=== PATIENT | female | born 1965 | race Caucasian/White ===

== ENCOUNTER 2017-02-08 19:08 | Inpatient (IN) | payer MEDICAID ==
[~2017-02-08] VITALS: Ht 175.3 cm; Wt 81.6 kg
[2017-02-08 19:12] VITALS: BP 122/81
[2017-02-08 19:42] LABS: BASOPHILS % (AUTO) 0.8 % (0.0-2.0); EOSINOPHILS % (AUTO) 0.1 % (0.0-3.0); LYMPHOCYTES % (AUTO) 24.5 % (20.0-45.0); MEAN CORPUSCULAR VOLUME 97 FL (80-99); MEAN PLATELET VOLUME 6.8 FL (6.5-10.1); MONOCYTES % (AUTO) 9.5 % (1.0-10.0); NEUTROPHILS % (AUTO) 65.1 % (45.0-75.0); PLATELET COUNT 270 K/UL (150-450); RED BLOOD COUNT 4.62 M/UL (4.20-5.40); RED CELL DISTRIBUTION WIDTH 12.2 % (11.6-14.8); WHITE BLOOD COUNT 5.7 K/UL (4.8-10.8)
[2017-02-08 19:50] LABS: TROPONIN I < 0.30 ng/mL (<=0.30)
[2017-02-08 19:51] LABS: ALBUMIN/GLOBULIN RATIO 1.3 (1.0-2.7); CALCIUM 10.2 mg/dL (8.6-10.2); CREATININE 1.1 mg/dL (0.5-0.9); GLOMERULAR FILTRATION RATE 52.4 mL/min (>60); POTASSIUM 3.4 mEQ/L (3.4-4.9); TOTAL PROTEIN 9.1 g/dL (6.6-8.7)
[2017-02-08 19:59] LABS: APPEARANCE,URINE CLEAR; KETONES,URINE 1+ (NEGATIVE); LEUKOCYTE ESTERASE ,URINE 1+ (NEGATIVE); NITRITE,URINE POSITIVE (NEGATIVE); PH,URINE 5 (4.5-8.0); PROTEIN,URINE 3+ (NEGATIVE); UROBILINOGEN,URINE 4 MG/DL (0.0-1.0)
[2017-02-08 20:00] VITALS: BP 128/74
[2017-02-08 20:06] LABS: BACTERIA,URINE FEW /HPF; SQUAMOUS EPITHELIAL CELL,UR FEW /LPF (NONE/OCC); WBC,URINE 0-2 /HPF (0 - 2)
[2017-02-08 20:07] LABS: AMORPHOUS SEDIMENT,UR FEW /LPF; ICTOTEST NEGATIVE
[2017-02-08] MEDS ORDERED: Lidocaine 1% MPF 10mg/ml 5ml INJ ONE (20:15)
[2017-02-08 20:18] LABS: CKMB 3.2 ng/mL (< 3.8)
[2017-02-08] MEDS ORDERED: Bacitracin Oint UD TOPIC ONE (20:24)
[2017-02-08 21:00] VITALS: BP 117/59
--- NOTE | 2017-02-08 21:01 | Emergency Room Report ---
History of Present Illness General Chief Complaint: Multiple Trauma/Fall Source: Patient Present Illness HPI The patient has a two-year history of alcohol abuse. She states she had been clean for 15 years after abusing alcohol previously. She states she relapsed 2 years ago and is progressively been drinking or every day. She states she drinks about 4 or hard liquor drinks per day. She states that she went to take care of her animals and she fell and hit her head on the floor. She states that she also has ankle pain. She states she's never injured herself while drinking. She states that she would like to detox again and come completely off alcohol. She states that she has severe withdrawal and would like to be an inpatient to do this. She did drink today. She has no other complaints. Allergies: Coded Allergies: OPIOIDS - MORPHINE ANALOGUES (Unverified Adverse Reaction, Mild, "Makes patient feel sick", 02/08/17) Uncoded Allergies: OPIATES (Allergy, Unknown, 02/08/17) "MAKE PT FEEL SICK" Patient History Past Medical History: see triage record, other - ETOH abuse Social History: Reports: alcohol use, Denies: drug use, smoking Reviewed Nursing Documentation: PMH: Agreed, PSxH: Agreed Nursing Documentation-PMH Past Medical History: No Stated History Review of Systems All Other Systems: negative except mentioned in HPI Physical Exam Vital Signs Date Time Temp Pulse Resp B/P Pulse Ox O2 Delivery O2 Flow Rate FiO2 02/08/17 19:00 97.9 102 14 122/81 97 Room Air Sp02 EP Interpretation: reviewed, normal General Appearance: no apparent distress, alert, GCS 15, non-toxic, other - + odor of ETOH Head: normocephalic, other - 2.5cm Forehead laceration at the scalp line. Gaping, full thickness. Eyes: bilateral eye PERRL, bilateral eye normal inspection ENT: hearing grossly normal, normal pharynx, no angioedema, normal voice Neck: full range of motion, supple/symm/no masses Respiratory: chest non-tender, lungs clear, normal breath sounds, speaking full sentences Cardiovascular #1: regular rate, rhythm, no edema Gastrointestinal: normal bowel sounds, non tender, soft, non-distended, no guarding, no rebound Rectal: deferred Musculoskeletal: back normal, other - L. ankle w/ swelling and ecchymosis Neurologic: alert, oriented x3, responsive, motor strength/tone normal, sensory intact, speech normal Psychiatric: judgement/insight normal, memory normal, mood/affect normal, no suicidal/homicidal ideation Skin: well hydrated, other - See head exam Medical Decision Making Diagnostic Impression: Primary Impression: EtOH dependence Additional Impressions: Facial laceration Ankle fracture, bimalleolar, closed ETOH detoxification ER Course Patient presents status post fall and alcohol intoxication. She has a facial laceration that was repaired. See my procedure note. She also has a bimalleolar ankle fracture. The patient was placed in a splint. The patient requests alcohol detoxification as an inpatient. The patient is admitted for further detox. She also has a bimalleolar fracture and may need surgical repair. The patient is admitted for further evaluation and treatment. Labs Test 02/08/17 19:20 White Blood Count 5.7 K/UL (4.8-10.8) Red Blood Count 4.62 M/UL (4.20-5.40) Hemoglobin 16.2 G/DL (12.0-16.0) Hematocrit 44.9 % (37.0-47.0) Mean Corpuscular Volume 97 FL (80-99) Mean Corpuscular Hemoglobin 35.0 PG (27.0-31.0) Mean Corpuscular Hemoglobin Concent 36.0 G/DL (32.0-36.0) Red Cell Distribution Width 12.2 % (11.6-14.8) Platelet Count 270 K/UL (150-450) Mean Platelet Volume 6.8 FL (6.5-10.1) Neutrophils (%) (Auto) 65.1 % (45.0-75.0) Lymphocytes (%) (Auto) 24.5 % (20.0-45.0) Monocytes (%) (Auto) 9.5 % (1.0-10.0) Eosinophils (%) (Auto) 0.1 % (0.0-3.0) Basophils (%) (Auto) 0.8 % (0.0-2.0) Prothrombin Time 10.0 SEC (9.30-11.50) Prothromb Time International Ratio 1.0 (0.9-1.1) Activated Partial Thromboplast Time 27 SEC (23-33) Urine Color Brown Urine Appearance Clear Urine pH 5 (4.5-8.0) Urine Specific [place] 1.030 (1.005-1.035) Urine Protein 3+ (NEGATIVE) Urine Glucose (UA) Negative (NEGATIVE) Urine Ketones 1+ (NEGATIVE) Urine Occult Blood 2+ (NEGATIVE) Urine Nitrite Positive (NEGATIVE) Urine Bilirubin 1+ (NEGATIVE) Urine Ictotest Negative Urine Urobilinogen 4 MG/DL (0.0-1.0) Urine Leukocyte Esterase 1+ (NEGATIVE) Urine RBC 2-4 /HPF (0 - 2) Urine WBC 0-2 /HPF (0 - 2) Urine Squamous Epithelial Cells Few /LPF (NONE/OCC) Urine Amorphous Sediment Few /LPF (NONE) Urine Bacteria Few /HPF (NONE) Sodium Level 138 mEQ/L (135-145) Potassium Level 3.4 mEQ/L (3.4-4.9) Chloride Level 94 mEQ/L (98-107) Carbon Dioxide Level 22 mEQ/L (20-30) Anion Gap 22 (5-15) Blood Urea Nitrogen 16 mg/dL (7-23) Creatinine 1.1 mg/dL (0.5-0.9) Estimat Glomerular Filtration Rate 52.4 mL/min (>60) Glucose Level 119 mg/dL (74-106) Calcium Level 10.2 mg/dL (8.6-10.2) Total Bilirubin 0.5 mg/dL (0.0-1.2) Aspartate Amino Transf (AST/SGOT) 127 U/L (5-40) Alanine Aminotransferase (ALT/SGPT) 92 U/L (3-33) Alkaline Phosphatase 127 U/L (35-104) Total Creatine Kinase 248 U/L (26-140) Creatine Kinase MB 3.2 ng/mL (< 3.8) Creatine Kinase MB Relative Index 1.2 Troponin I < 0.30 ng/mL (<=0.30) Total Protein 9.1 g/dL (6.6-8.7) Albumin 5.3 g/dL (3.5-5.2) Globulin 3.8 g/dL Albumin/Globulin Ratio 1.3 (1.0-2.7) Serum Alcohol 287 mg/dL EKG Diagnostic Results Rate: normal Rhythm: NSR ST Segments: no acute changes Rhythm Strip Diag. Results EP Interpretation: yes Rate: 90's Rhythm: NSR, no PVC's, no ectopy Chest X-Ray Diagnostic Results Chest X-Ray Diagnostic Results : Chest X-Ray Ordered: Yes # of Views/Limited/Complete: 1 View Indication: Other EP Interpretation: Yes Interpretation: no consolidation, no effusion, no pneumothorax, no acute cardiopulmonary disease Impression: No acute disease CT/MRI/US Diagnostic Results CT/MRI/US Diagnostic Results : Imaging Test Ordered: CT head, CT facial bones Impression No acute bleed. No fracture. See official report. Last Vital Signs Date Time Temp Pulse Resp B/P Pulse Ox O2 Delivery O2 Flow Rate FiO2 02/08/17 20:00 89 16 128/74 98 Room Air 02/08/17 19:12 97.9 Disposition: ADMITTED INPATIENT Condition: Stable Referrals: NOT CHOSEN IPA/,REFERRING (PCP) BRITANY REGALADO D.O. Feb 08, 2017 21:01
[2017-02-08 22:00] VITALS: BP 124/81
[2017-02-08] MEDS ORDERED: Zolpidem 5mg tab ORAL PRN (22:30)
[2017-02-08] MEDS ORDERED: LORazepam Inj 2mg/ml 1ml IV PRN (22:30)
[2017-02-08] MEDS ORDERED: Mylanta II UD 30ml ORAL PRN (22:30)
[2017-02-08] MEDS ORDERED: Miralax 17gm pkt ORAL PRN (22:30)
[2017-02-08] MEDS ORDERED: chlordiazePOXIDE 25mg Cap ORAL PRN (22:30)
[2017-02-08 23:00] VITALS: BP 110/66
[2017-02-09] VITALS: BP 120/92
[2017-02-09] MEDS: Morphine Sulfate 2mg/ml Inj IVP PRN ×3 (01:00→11:44)
[2017-02-09 04:00] VITALS: BP 119/69
[2017-02-09 06:33] LABS: BASOPHILS % (AUTO) 0.5 % (0.0-2.0); EOSINOPHILS % (AUTO) 0.1 % (0.0-3.0); LYMPHOCYTES % (AUTO) 12.3 % (20.0-45.0); MEAN CORPUSCULAR HGB CONC 34.1 G/DL (32.0-36.0); MEAN CORPUSCULAR VOLUME 100 FL (80-99); MONOCYTES % (AUTO) 11.3 % (1.0-10.0); NEUTROPHILS % (AUTO) 75.8 % (45.0-75.0); PLATELET COUNT 221 K/UL (150-450); RED BLOOD COUNT 3.79 M/UL (4.20-5.40); RED CELL DISTRIBUTION WIDTH 12.2 % (11.6-14.8); WHITE BLOOD COUNT 6.5 K/UL (4.8-10.8)
[2017-02-09 07:27] LABS: ALANINE AMINOTRANSFERASE 64 U/L (3-33); ALBUMIN/GLOBULIN RATIO 1.1 (1.0-2.7); ANION GAP 21 (5-15); ASPARTATE AMINO TRANSFERASE 88 U/L (5-40); CALCIUM 9.2 mg/dL (8.6-10.2); CARBON DIOXIDE 21 mEQ/L (20-30); CHLORIDE 95 mEQ/L (98-107); CREATININE 0.7 mg/dL (0.5-0.9); GLOMERULAR FILTRATION RATE > 60 mL/min (>60); HEMOLYSIS 3; POTASSIUM 3.9 mEQ/L (3.4-4.9); SODIUM 137 mEQ/L (135-145); TOTAL PROTEIN 7.8 g/dL (6.6-8.7)
[2017-02-09 08:00] VITALS: BP 130/77
[2017-02-09] MEDS ORDERED: Thiamine HCl 100 MG in D5W 110 ML IVPB SCH (09:00)
[2017-02-09] MEDS ORDERED: Folic Acid 1 MG, Magnesium Sulfate 2,000 MG, Multivitamin - 12 Injection 10 ML in NS w/... IV SCH (09:00)
[2017-02-09] MEDS ORDERED: Heparin 5000 units/ml inj SUBQ SCH (09:00)
--- NOTE | 2017-02-09 09:02 | Diagnostic Imaging Report ---
Indication: Head trauma and headache Technique: Contiguous 5 mm thick transaxial imaging of the head obtained in a Siemens Sensation [address] scanner. Soft tissue and bone windows generated. Total Dose length Product (DLP): Refer CT maxillofacial mGycm CT Dose Index Volume (CTDIvol): Refer to CT maxillofacial mGy Comparison: none Findings: There is mild prominence of the ventricles, basal cisterns, and cerebral sulci consistent with atrophy. Mild, nonspecific, white matter hypoattenuation is noted throughout the brain consistent with chronic small vessel disease. There is no midline shift, edema, acute hemorrhage, mass effect, or abnormal extra-axial fluid collections. Bones and extra osseous soft tissues are unremarkable. Impression: No acute intracranial bleed, mass effect or edema. Mild atrophy of the brain. Nonspecific white matter hypoattenuation probably due to chronic small vessel disease. The CT scanner at [facility] is accredited by the [employer] and the scans are performed using dose optimization techniques as appropriate to a performed exam including Automatic Exposure control.
--- NOTE | 2017-02-09 09:21 | Diagnostic Imaging Report ---
Indication: Chest pain and chest trauma Comparison: None A single view chest radiograph was obtained. Findings: Cardiomediastinal appearance is within normal limits for age. Pulmonary vascularity is appropriate. The diaphragmatic contour is smooth and costophrenic angles are sharp. No pleural effusions are identified. The bones are unremarkable. Impression: No acute findings
--- NOTE | 2017-02-09 09:21 | Diagnostic Imaging Report ---
Indication: Left ankle pain and trauma Comparison: None Findings: 3 views of the left ankle obtained. There is an acute to subacute fracture involving the lateral malleolus with overlying soft tissue swelling. No other fractures are appreciated. Impression: Acute fracture of the lateral malleolus
--- NOTE | 2017-02-09 10:27 | History and Physical ---
History of Present Illness General Date patient seen: Feb 09, 2017 Reason for Hospitalization: Multiple Trauma/Fall Present Illness HPI 51 year old female with hx of alcohol abuse, who has been progressively drinking or every day. She states that she went to take care of her animals and she fell and hit her head on the floor. She states that she also has ankle pain. she was diagnosed to have malleolus fracture, received a splint from ER physician and transferred to [facility] because of her high level of ETOH. Allergies: Coded Allergies: OPIOIDS - MORPHINE ANALOGUES (Unverified Adverse Reaction, Mild, "Makes patient feel sick", 02/08/17) Uncoded Allergies: OPIATES (Allergy, Unknown, 02/08/17) "MAKE PT FEEL SICK" Patient History Healthcare decision maker Resuscitation status Full Code Advanced Directive on File No Past Medical/Surgical History Past Medical/Surgical History: (1) EtOH dependence Review of Systems All Other Systems: negative except mentioned in HPI Physical Exam General Appearance: WD/WN Lines, tubes and drains: peripheral HEENT: normocephalic, atraumatic Neck: non-tender, normal alignment Respiratory/Chest: chest wall non-tender, normal breath sounds Cardiovascular/Chest: normal peripheral pulses, normal rate Abdomen: normal bowel sounds Genitourinary/Rectal: normal genital exam Extremities: normal range of motion Last 24 Hour Vital Signs Date Time Temp Pulse Resp B/P Pulse Ox O2 Delivery O2 Flow Rate FiO2 02/09/17 08:00 81 02/09/17 08:00 97.5 81 19 130/77 97 Room Air 02/09/17 06:54 97.0 02/09/17 04:00 97.0 85 18 119/69 97 Room Air 02/09/17 04:00 86 02/09/17 00:00 97.3 88 20 120/92 96 Room Air 02/09/17 00:00 90 02/08/17 23:20 97.9 88 21 110/66 100 Room Air 02/08/17 23:00 88 21 110/66 100 Room Air 02/08/17 22:00 86 23 124/81 96 Room Air 02/08/17 21:00 84 18 117/59 98 Room Air 02/08/17 20:00 89 16 128/74 98 Room Air 02/08/17 19:12 97.9 102 14 122/81 97 Room Air 02/08/17 19:00 97.9 102 14 122/81 97 Room Air Intake and Output 02/08/17 02/09/17 19:00 07:00 Intake Total 1500 ml Balance 1500 ml Intake Oral 500 ml IV Total 1000 ml Laboratory Tests Test 02/08/17 19:20 02/09/17 04:45 White Blood Count 5.7 K/UL (4.8-10.8) 6.5 K/UL (4.8-10.8) Red Blood Count 4.62 M/UL (4.20-5.40) 3.79 M/UL (4.20-5.40) L Hemoglobin 16.2 G/DL (12.0-16.0) H 12.9 G/DL (12.0-16.0) Hematocrit 44.9 % (37.0-47.0) 37.8 % (37.0-47.0) Mean Corpuscular Volume 97 FL (80-99) 100 FL (80-99) H Mean Corpuscular Hemoglobin 35.0 PG (27.0-31.0) H 34.0 PG (27.0-31.0) H Mean Corpuscular Hemoglobin Concent 36.0 G/DL (32.0-36.0) 34.1 G/DL (32.0-36.0) Red Cell Distribution Width 12.2 % (11.6-14.8) 12.2 % (11.6-14.8) Platelet Count 270 K/UL (150-450) 221 K/UL (150-450) Mean Platelet Volume 6.8 FL (6.5-10.1) 7.0 FL (6.5-10.1) Neutrophils (%) (Auto) 65.1 % (45.0-75.0) 75.8 % (45.0-75.0) H Lymphocytes (%) (Auto) 24.5 % (20.0-45.0) 12.3 % (20.0-45.0) L Monocytes (%) (Auto) 9.5 % (1.0-10.0) 11.3 % (1.0-10.0) H Eosinophils (%) (Auto) 0.1 % (0.0-3.0) 0.1 % (0.0-3.0) Basophils (%) (Auto) 0.8 % (0.0-2.0) 0.5 % (0.0-2.0) Prothrombin Time 10.0 SEC (9.30-11.50) Prothromb Time International Ratio 1.0 (0.9-1.1) Activated Partial Thromboplast Time 27 SEC (23-33) Urine Color Brown Urine Appearance Clear Urine pH 5 (4.5-8.0) Urine Specific [place] 1.030 (1.005-1.035) Urine Protein 3+ (NEGATIVE) H Urine Glucose (UA) Negative (NEGATIVE) Urine Ketones 1+ (NEGATIVE) H Urine Occult Blood 2+ (NEGATIVE) H Urine Nitrite Positive (NEGATIVE) H Urine Bilirubin 1+ (NEGATIVE) H Urine Ictotest Negative Urine Urobilinogen 4 MG/DL (0.0-1.0) H Urine Leukocyte Esterase 1+ (NEGATIVE) H Urine RBC 2-4 /HPF (0 - 2) H Urine WBC 0-2 /HPF (0 - 2) Urine Squamous Epithelial Cells Few /LPF (NONE/OCC) Urine Amorphous Sediment Few /LPF (NONE) H Urine Bacteria Few /HPF (NONE) Sodium Level 138 mEQ/L (135-145) 137 mEQ/L (135-145) Potassium Level 3.4 mEQ/L (3.4-4.9) 3.9 mEQ/L (3.4-4.9) Chloride Level 94 mEQ/L (98-107) L 95 mEQ/L (98-107) L Carbon Dioxide Level 22 mEQ/L (20-30) 21 mEQ/L (20-30) Anion Gap 22 (5-15) H 21 (5-15) H Blood Urea Nitrogen 16 mg/dL (7-23) 15 mg/dL (7-23) Creatinine 1.1 mg/dL (0.5-0.9) H 0.7 mg/dL (0.5-0.9) Estimat Glomerular Filtration Rate 52.4 mL/min (>60) > 60 mL/min (>60) Glucose Level 119 mg/dL (74-106) H 87 mg/dL (74-106) Calcium Level 10.2 mg/dL (8.6-10.2) 9.2 mg/dL (8.6-10.2) Total Bilirubin 0.5 mg/dL (0.0-1.2) 0.7 mg/dL (0.0-1.2) Aspartate Amino Transf (AST/SGOT) 127 U/L (5-40) H 88 U/L (5-40) H Alanine Aminotransferase (ALT/SGPT) 92 U/L (3-33) H 64 U/L (3-33) H Alkaline Phosphatase 127 U/L (35-104) H 115 U/L (35-104) H Total Creatine Kinase 248 U/L (26-140) H Creatine Kinase MB 3.2 ng/mL (< 3.8) Creatine Kinase MB Relative Index 1.2 Troponin I < 0.30 ng/mL (<=0.30) Total Protein 9.1 g/dL (6.6-8.7) H 7.8 g/dL (6.6-8.7) Albumin 5.3 g/dL (3.5-5.2) H 4.2 g/dL (3.5-5.2) Globulin 3.8 g/dL 3.6 g/dL Albumin/Globulin Ratio 1.3 (1.0-2.7) 1.1 (1.0-2.7) Serum Alcohol 287 mg/dL Height (Feet): 5 Height (Inches): 9.00 Weight (Pounds): 180 Medications Current Medications Medications (Trade) Dose Ordered Sig/Tsering Route PRN Reason Start Time Stop Time Status Last Admin Dose Admin Acetaminophen (Tylenol) 650 mg Q4H PRN ORAL fever 02/08/17 22:30 03/10/17 22:29 Al Hydroxide/Mg Hydroxide (Mylanta II) 30 ml Q6H PRN ORAL dyspepsia 02/08/17 22:30 03/10/17 22:29 Chlordiazepoxide 25 mg 25 mg Q6H PRN ORAL Agitation 02/08/17 22:30 02/15/17 22:29 Dextrose STAT PRN IV Hypoglycemia 02/08/17 22:30 03/10/17 22:29 Folic Acid/ Magnesium Sulfate/ Multivitamins/ Sodium Chloride (Folvite/ Magnesium Sulfate/ M.v.i.-12/NS w/ KCl 20mEq) 1,014.2 ml @ 124.876 mls/hr DAILY IV 02/09/17 09:00 03/11/17 08:59 02/09/17 09:39 Heparin Sodium (Porcine) (Heparin 5000 units/ml) 5,000 units EVERY 12 HOURS SUBQ 02/09/17 09:00 03/11/17 08:59 02/09/17 09:35 Lorazepam (Ativan 2mg/ml 1ml) 2 mg Q1H PRN IV seizures 02/08/17 22:30 02/15/17 22:29 Morphine Sulfate (Morphine Sulfate) 4 mg Q4H PRN IVP For Pain 02/08/17 22:30 02/15/17 22:29 02/09/17 06:24 Ondansetron HCl (Zofran) 4 mg Q6H PRN IVP Nausea & Vomiting 02/08/17 22:30 03/10/17 22:29 02/09/17 07:02 Polyethylene Glycol (Miralax) 17 gm HSPRN PRN ORAL Constipation 02/08/17 22:30 03/10/17 22:29 Thiamine HCl/ Dextrose (Vitamin B1/D5W) 111 ml @ 111 mls/hr DAILY IVPB 02/09/17 09:00 03/11/17 08:59 02/09/17 09:39 Zolpidem Tartrate (Ambien) 5 mg HSPRN PRN ORAL Insomnia 02/08/17 22:30 03/10/17 22:29 02/09/17 00:29 Assessment/Plan Problem List: (1) Acute encephalopathy ICD Codes: G93.40 - Encephalopathy, unspecified SNOMED: 1664307 (2) Alcohol intoxication ICD Codes: F10.929 - Alcohol use, unspecified with intoxication, unspecified SNOMED: 35151272 (3) EtOH dependence ICD Codes: F10.20 - Alcohol dependence, uncomplicated SNOMED: 74430645, 744061582 (4) Ankle fracture, bimalleolar, closed ICD Codes: S82.843A - Displaced bimalleolar fracture of unspecified lower leg, initial encounter for closed fracture SNOMED: 62298306, 193293128 Assessment/Plan IV fluids check electrolytes. social service consult for detox referral. JEAN LABOY Feb 09, 2017 10:27
[2017-02-09 12:00] VITALS: BP 132/82
--- NOTE | 2017-02-09 13:31 | Diagnostic Imaging Report ---
Indication: Facial trauma and pain Technique: Continuous helical transaxial imaging of the maxillofacial structures obtained without intravenous contrast administration. Coronal 2-D reformats were also obtained. Study obtained in a Siemens sensation [address] Total Dose length Product (DLP): [address] Dose Index Volume (CTDIvol): 0.15, 70.38, 28.19 mGy Comparison: None Findings: There is no evidence of an acute fracture. There is mucosal thickening demonstrated within the right sphenoid sinus. Orbits appear normal bilaterally. There is no proptosis or retrobulbar hemorrhage. There is considerable motion artifact which limits evaluation of the mouth and mandible region. Fracture is not excludable. Impression: No acute fracture identified. Sinusitis Motion artifact prohibiting adequate evaluation of the mandible The CT scanner at [facility] is accredited by the [employer] and the scans are performed using dose optimization techniques as appropriate to a performed exam including Automatic Exposure control.
[2017-02-09 16:09] VITALS: BP 138/91
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
--- NOTE | 2017-02-11 13:23 | Discharge Summary ---
Discharge Summary Hospital Course Date of Admission Feb 08, 2017 at 21:26 Date of Discharge Feb 09, 2017 at 16:37 Admitting Diagnosis ETOH detox, ankle fx HPI Maryam Parker is a 51 year old female who was admitted on Feb 08, 2017 at 21: 26 for Etoh Detox,Ankle Fracture Hospital Course [id number] Discharge Discharge Disposition Patient was discharged to Home (01) Discharge Diagnoses: Leslie Pendleton NP Feb 11, 2017 13:23
== END 2017-02-09 16:37 | disposition home or self-care (01) | DRG 775 ==
LOC: EDBD 19:08 → EMR 20:35 → 2E 21:26 → EDBEDREQ 23:10 → 2E 23:26
PROC: 2W3RX1Z Immobilization of Left Lower Leg using Splint (ICD-10-PCS; principal; 2017-02-08)
PROC: 0HQ0XZZ Repair Scalp Skin, External Approach (ICD-10-PCS; 2017-02-08)
DX: F10.229 Alcohol dependence with intoxication, unspecified (principal); G93.40 Encephalopathy, unspecified; S82.842A Displaced bimalleolar fracture of left lower leg, initial encounter for closed fracture; S01.81XA Laceration without foreign body of other part of head, initial encounter; Y90.8 Blood alcohol level of 240 mg/100 ml or more; W19.XXXA Unspecified fall, initial encounter; Y92.89 Other specified places as the place of occurrence of the external cause
CPT/HCPCS: 36415; 70450; 70486; 71010; 80053; 80329; 81003; 82550; 82553; 84484; 85025; 85610; 85730; 93005; J2405

== ENCOUNTER 2017-02-12 23:19 | Emergency (ER) | payer MEDICAID ==
[~2017-02-12] VITALS: Ht 175.3 cm; Wt 81.6 kg
[2017-02-12] MEDS ORDERED: ASPIRIN EC325 MG ORAL (23:25)
[2017-02-12 23:30] VITALS: BP 134/80
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
[2017-02-12] MEDS ORDERED: Ketorolac 60mg Inj IM ONE (23:45)
[2017-02-13] MEDS ORDERED: IBUPROFEN600 MG ORAL (00:58)
[2017-02-13 01:35] VITALS: BP 1/1
== END 2017-02-13 01:36 | disposition home or self-care (01) ==
LOC: EMR 23:41
DX: S82.892D Other fracture of left lower leg, subsequent encounter for closed fracture with routine healing (principal); R58 Hemorrhage, not elsewhere classified; T74.11XD Adult physical abuse, confirmed, subsequent encounter
CPT/HCPCS: 29540; 96372; 99283